=== PATIENT | male | born 2000 | race Caucasian/White ===

== ENCOUNTER 2019-02-05 19:35 | Emergency (ER) | payer SELFPAY ==
[~2019-02-05] VITALS: Ht 188 cm; Wt 90.9 kg
[2019-02-05 19:43] VITALS: TEMP 98.4
[2019-02-05 20:03] LABS: BASO # 0.1 (0.0-0.2); BASO % 1.1 % (0.0-2.0); EOS # 0.6 (0.0-0.7); EOS % 9.1 % (0-4.0); GRAN # 3.7 (1.4-6.5); GRAN % 53.2 % (42.2-75.2); HEMOGLOBIN 16.3 g/dl (12.5-16.1); LYMPH % 28.2 % (20.0-51.0); MEAN CELL VOLUME 84 fl (80.0-95.0); MEAN CORPUSCULAR HEMOGLOBIN 30 pg (26.0-32.0); MEAN CORPUSCULAR HGB CONC 35 g/dl (33.0-37.0); MEAN PLATELET VOLUME 10.9 fl (7.4-10.4); MONO # 0.6 (0.1-0.6); MONO % 8.1 % (1.7-9.3); PLATELET COUNT 202 K/mm3 (130-400); RED BLOOD COUNT 5.49 M/mm3 (4.20-5.60)
[2019-02-05 20:14] LABS: ALBUMIN 4.8 gm/dL (3.5-5.0); BILIRUBIN,TOTAL 0.8 mg/dL (0.0-1.0); CREATININE, serum 1.07 (0.66-1.25); POTASSIUM 4.2 mmol/L (3.4-5.0); TOTAL PROTEIN 8.5 gm/dL (6.4-8.2)
[2019-02-05] MEDS ORDERED: ZOFRAN ODT4 MG PO (21:23)
[2019-02-05 22:02] VITALS: BP 112/68; PULSE 75
== END 2019-02-05 22:04 | disposition home or self-care (01) ==
LOC: COL.ER 19:35
PROVIDERS: Emergency Medicine
DX: R11.2 Nausea with vomiting, unspecified (principal); F17.210 Nicotine dependence, cigarettes, uncomplicated; Z88.8 Allergy status to other drugs, medicaments and biological substances; Z90.49 Acquired absence of other specified parts of digestive tract
CPT/HCPCS: J2405; J2550; J7030